=== PATIENT | female | born 2000 ===

== ENCOUNTER 2024-11-29 05:54 | Outpatient (REF) | payer OTHER, SELFPAY ==
--- NOTE | ~2024-11-29 | US_ITS ---
EXAMINATION: US PELVIS CLINICAL INFORMATION: amenorrhea, ? PCOS COMPARISON: None available. TECHNIQUE: Ultrasound of the pelvis is performed using both transabdominal and transvaginal transducers along with Doppler. Transvaginal imaging is performed due to inadequate visualization transabdominally. FINDINGS: Uterus: The uterus is anteverted and measures 7.8 x 4.2 x 5.4 cm. The double wall endometrial thickness is 3 mm. The uterus is smooth in contour and has normal myometrial echogenicity. No visible fibroid. Adnexa: Both ovaries are visualized. There is normal color flow to the adnexa. There is no ovarian torsion. There is no pelvic ascites or fluid collection. Right ovary measures 3.4 x 2.2 x 3.8 cm. Multiple small peripheral cysts or follicles. Left ovary measures 2.9 x 1.8 x 2.8 cm. Multiple small peripheral cysts or follicles. US/US pelvic and transvaginal IMPRESSION: Polycystic appearance of the ovaries. Normal appearing uterus and endometrium. Electronically signed by: Yasmeen Multani MD 11/29/2024 11:05 AM EDT
== END 2024-11-29 05:55 | disposition home or self-care (01) ==
LOC: HO.UMASIMG 05:54
PROVIDERS: Visit Provider Family Medicine
DX: N91.2 Amenorrhea, unspecified (principal)
CPT/HCPCS: 76830; 76856

== ENCOUNTER → 2024-11-29 09:06 | Outpatient (BNV) | payer OTHER, SELFPAY | PROVIDERS: Visit Provider Radiology Diagnostic Radiology | DX: N91.2 Amenorrhea, unspecified (principal) | CPT/HCPCS: 76830; 76856 ==